=== PATIENT | male | born 1985 | race Caucasian/White ===

== ENCOUNTER 2018-01-29 09:53 | Emergency (ER) | payer SELFPAY ==
[~2018-01-29] VITALS: Ht 175.3 cm; Wt 68.2 kg
[2018-01-29 10:00] VITALS: Ht 175.3 cm; Wt 68.2 kg
[2018-01-29] MEDS ORDERED: VOLTAREN75 MG PO (10:48)
[2018-01-29 11:09] VITALS: BP 124/73
== END 2018-01-29 11:09 | disposition home or self-care (01) ==
LOC: D.ER 09:53
DX: S99.921A Unspecified injury of right foot, initial encounter (principal); W20.8XXA Other cause of strike by thrown, projected or falling object, initial encounter; Y93.89 Activity, other specified; Y92.019 Unspecified place in single-family (private) house as the place of occurrence of the external cause